=== PATIENT | male | born 1995 | race Caucasian/White ===

== ENCOUNTER 2020-01-03 13:01 | Outpatient (CLI) | payer OTHER ==
[2020-01-03] MEDS ORDERED: ALBUTEROL 1 PUFF INH STA (14:30)
== END 2020-01-03 13:02 | disposition home or self-care (01) ==
LOC: RT 13:01
PROVIDERS: ATTEND Family Medicine
DX: R06.00 Dyspnea, unspecified (principal)
CPT/HCPCS: 94060